=== PATIENT | female | born 1985 | race Caucasian/White ===

== ENCOUNTER 2019-02-23 05:50 | Inpatient (IN) | payer OTHER ==
[~2019-02-23] VITALS: Ht 177.8 cm; Wt 92.5 kg
[~2019-02-23 05:50] MED LIST: CITRIC ACID/SODIUM CITRATE 30 ML SOLUTION UDCUP PO ONE; METOCLOPRAMIDE HCL 5 MG/ML 2 ML VIAL IVP ONE; RINGERS SOLUTION,LACTATED 1,000 ML IV ONE
[2019-02-23 06:33] VITALS: BP 115/65
[2019-02-23] MEDS ORDERED: PREN-134 PO (06:33)
[2019-02-23 06:34] LABS: BASOPHILS % (AUTO) 0.4 % (0.0-2.0); EOSINOPHILS % (AUTO) 0.5 % (1.0-6.0); HEMATOCRIT 42.4 % (36-46); LYMPHOCYTES # (AUTO) 3.2 K/uL (1.0-4.8); LYMPHOCYTES % (AUTO) 26.8 % (22.0-44.0); MEAN CORPUSCULAR HEMOGLOBIN 30.3 pg (26.0-34.0); MEAN CORPUSCULAR VOLUME 92 fL (80-100); MONOCYTES # (AUTO) 0.9 K/uL (0.1-1.0); MONOCYTES % (AUTO) 7.4 % (2.0-9.0); NEUTROPHILS # (AUTO) 7.7 K/uL (1.8-7.7); NEUTROPHILS % (AUTO) 64.9 % (40.0-70.0); PLATELET COUNT (AUTO) 210 K/uL (150-450); RED BLOOD CELL COUNT(AUTO) 4.62 MIL/uL (4.00-5.20); RED CELL DISTRIBUTION WIDTH 14.1 % (11.5-14.5)
[2019-02-23] MEDS ORDERED: RINGERS SOLUTION,LACTATED 0 ML IV ONE (08:27)
[2019-02-23] MEDS ORDERED: SODIUM CHLORIDE 0.9% 1,000 ML IV ONE (08:27)
[2019-02-23] MEDS ORDERED: BUPIVACAINE HCL/DEX-WATER/PF 0.75% 2 ML AMP ONE (08:27)
[2019-02-23] MEDS ORDERED: MORPHINE SULFATE 10 MG/ML SYRINGE IVP PRN (09:15)
[2019-02-23] MEDS ORDERED: NALBUPHINE HCL 10 MG/ML VIAL IVP PRN ×2 (09:15)
[2019-02-23] MEDS ORDERED: HYDROmorphone 2 MG/ML SYRINGE IVP PRN (09:15)
[2019-02-23] MEDS ORDERED: ONDANSETRON HCL 4 MG/2 ML VIAL IVP PRN (09:15)
[2019-02-23] MEDS ORDERED: DiphenhydrAMINE HCL 50 MG/ML VIAL IVP PRN (09:15)
[2019-02-23] MEDS ORDERED: MEPERIDINE-PF 25 MG/ML VIAL IVP PRN (09:15)
[2019-02-23] MEDS ORDERED: NALOXONE HCL 0.4 MG/ML VIAL IVP PRN (09:15)
[2019-02-23] MEDS ORDERED: FentaNYL CITRATE-PF 100 MCG/2 ML VIAL IVP PRN ×2 (09:15)
[2019-02-23] MEDS ORDERED: LANOLIN 7 GM OINTMENT TP PRN (09:45)
[2019-02-23] MEDS ORDERED: ACETAMINOPHEN/CODEINE 300-30 MG TABLET PO PRN (09:45)
[2019-02-23] MEDS ORDERED: ACETAMINOPHEN 1000 MG/ISO-OSM 100 ML IV ONE (10:12)
[2019-02-23] MEDS: ACETAMINOPHEN 1000 MG/ISO-OSM 100 ML IV SCH ×2 (10:16→19:28)
[2019-02-23] MEDS: DEXTROSE 5%-0.45% SODIUM CHL 1,000 ML IV SCH ×3 (11:08→20:48)
[2019-02-23] MEDS ORDERED: MORPHINE SULFATE/PF 0.5 MG/ML 10 ML AMP IVP ONE (12:00)
[2019-02-23] MEDS ORDERED: FentaNYL CITRATE-PF 100 MCG/2 ML VIAL IVP ONE (12:00)
[2019-02-23] MEDS: KETOROLAC TROMETHAMINE 30 MG/ML VIAL IVP SCH ×2 (15:59→21:29)
[2019-02-23] MEDS ORDERED: OXYGEN THERAPY IH SCH (20:00)
[2019-02-23] MEDS: OXYGEN THERAPY IH SCH ×2 (20:00)
[2019-02-23] MEDS: MAGNESIUM HYDROXIDE SUSPENSION 30 ML UDCUP PO SCH (20:47)
[2019-02-24] MEDS ORDERED: EPHEDrine SULFATE 50 MG/ML VIAL IM ONE (00:04)
[2019-02-24] MEDS ORDERED: 0.9% SODIUM CHLORIDE 10 ML VIAL IVP ONE (00:04)
[2019-02-24] MEDS ORDERED: ONDANSETRON HCL 4 MG/2 ML VIAL IVP ONE (00:04)
[2019-02-24] MEDS ORDERED: KETOROLAC TROMETHAMINE 60 MG/2 ML VIAL IM ONE (00:04)
[2019-02-24] MEDS: DEXTROSE 5%-0.45% SODIUM CHL 1,000 ML IV SCH (01:26)
[2019-02-24] MEDS: IBUPROFEN 800 MG TABLET PO SCH ×3 (04:14→16:14)
[2019-02-24] MEDS: OXYGEN THERAPY IH SCH ×4 (08:00→20:00)
[2019-02-24] MEDS: MAGNESIUM HYDROXIDE SUSPENSION 30 ML UDCUP PO SCH ×2 (08:32→21:42)
[2019-02-24] MEDS: ACETAMINOPHEN/CODEINE 300-30 MG TABLET PO PRN ×2 (15:37→21:42)
[2019-02-25] MEDS: IBUPROFEN 800 MG TABLET PO SCH ×4 (00:55→18:45)
[2019-02-25] MEDS: OXYGEN THERAPY IH SCH ×4 (08:00→20:00)
[2019-02-25] MEDS: MAGNESIUM HYDROXIDE SUSPENSION 30 ML UDCUP PO SCH ×2 (08:33→21:00)
[2019-02-26] MEDS: IBUPROFEN 800 MG TABLET PO SCH ×2 (00:56→06:50)
[2019-02-26] MEDS ORDERED: IBUP-2071 PO (10:04)
== END 2019-02-26 11:00 | disposition home or self-care (01) | DRG 788 ==
LOC: OBSVTOIN 05:50 → 4S 05:50
PROVIDERS: ADMIT Obstetrics & Gynecology; ATTEND Obstetrics & Gynecology
PROC: 10D00Z1 Extraction of Products of Conception, Low, Open Approach (ICD-10-PCS; principal; 2019-02-23)
DX: O36.63X0 Maternal care for excessive fetal growth, third trimester, not applicable or unspecified (principal); O48.0 Post-term pregnancy; O76 Abnormality in fetal heart rate and rhythm complicating labor and delivery; Z3A.40 40 weeks gestation of pregnancy; Z37.0 Single live birth
CPT/HCPCS: 86850; 86900; 86901; 87081; J0131; J0690; J1885; J2274; J2405; J2765; J3010; J3490; J7030; J7120